=== PATIENT | female | born 1955 | race Caucasian/White ===

== ENCOUNTER 2016-10-26 05:34 | Day surgery (SDC) | payer MEDICARE, OTHER ==
[2016-10-25 15:21] VITALS: Ht 157.5 cm; Wt 70.0 kg
[~2016-10-26] VITALS: Ht 157.5 cm; Wt 70.0 kg
[2016-10-26] VITALS (16 sets, daily range): BP systolic 119–173; BP diastolic 46–68; PULSE 68–78; RESP 18–28
[~2016-10-26 05:34] MED LIST: APIX5TAB PO; ASPI-664 PO; ATOR10TA65 PO; FER325 PO; FURO-109 PO; GABA300C16 PO; LEVE250T66 PO; OMEP20CA16 PO; SENN-36 PO; SERT50TA PO; SEVE800T7 PO
[2016-10-26] MEDS ORDERED: ROCURONIUM 50 MG INJ ONE (07:00)
--- NOTE | 2016-10-26 07:10 | HPN ---
Date/Time of Note Date/Time of Note DATE: 10/26/16 TIME: 07:10 Interval H&P Admission Note Pt. seen H&P reviewed: No system changes MELODY JENNINGS DPM Oct 26, 2016 07:10
[2016-10-26 07:23] LABS: POTASSIUM 5.4 mmol/L (3.5-5.1)
[2016-10-26 07:25] LABS: CREATININE 4.07 mg/dl (0.44-1.00)
[2016-10-26] MEDS ORDERED: PROPOFOL 100 ML ONE (07:25)
[2016-10-26] MEDS ORDERED: CEFAZOLIN 1 GM INJ ONE (07:25)
[2016-10-26] MEDS ORDERED: ROPIVACAINE 0.5 % 30 ML VIAL ONE (07:25)
[2016-10-26] MEDS ORDERED: MIDAZOLAM 1 MG/ML 2 ML INJ ONE (07:25)
[2016-10-26] MEDS ORDERED: FENTAnyl 50 MCG/ML VIAL ONE (07:25)
[2016-10-26] MEDS ORDERED: PHENYLephrine (100 MCG/ML) 5ML SYG ONE (07:56)
[2016-10-26] MEDS ORDERED: POLYMYXIN/BACITRACIN 1L IRRIG IRR ONE (08:02)
[2016-10-26] MEDS ORDERED: EPHEDrine SULFATE 50 MG/5 ML SYG IV PRN (08:30)
[2016-10-26] MEDS ORDERED: HYDROmorphONE (0.2 MG/ML) 10ML SYG IV PRN ×3 (08:30)
[2016-10-26] MEDS ORDERED: ONDANSETRON 4 MG INJ IV PRN (08:30)
[2016-10-26] MEDS ORDERED: FENTAnyl 50 MCG/ML VIAL IV PRN ×3 (08:30)
[2016-10-26] MEDS ORDERED: LABETALOL HCL 20MG INJ IV PRN (08:30)
[2016-10-26] MEDS ORDERED: DIPHENHYDRAMINE 50 MG INJ IV PRN (08:30)
[2016-10-26] MEDS ORDERED: morphine (1 MG/ML) 10ML SYRINGE IV PRN ×3 (08:30)
[2016-10-26] MEDS ORDERED: hydrALAzine 20 MG INJ IV PRN (08:30)
[2016-10-26] MEDS ORDERED: ONDANSETRON 4 MG INJ ONE (08:49)
[2016-10-26] MEDS ORDERED: DEXAMETHASONE 4 MG/ML 1 ML INJ ONE (08:49)
[2016-10-26] MEDS ORDERED: METOCLOPRAMIDE 10 MG INJ ONE (08:49)
[2016-10-26] MEDS ORDERED: GLYCOPYRROLATE 0.4 MG INJ ONE (08:49)
[2016-10-26] MEDS ORDERED: NEOSTIGMINE 3 MG/3 ML SYRINGE ONE (08:49)
--- NOTE | 2016-10-26 09:06 | OPR ---
Date/Time of Note Date/Time of Note DATE: 10/26/16 TIME: 09:04 Operative Report Procedure Date: Oct 26, 2016 Preoperative Diagnosis Right foot large plantar bony exostosis Right foot Charcot changes Diabetes mellitus Peripheral neuropathy Peripheral vascular disease On chronic HD Postoperative Diagnosis Right foot large plantar bony exostosis Right foot Charcot changes Diabetes mellitus Peripheral neuropathy Peripheral vascular disease On chronic HD Operation Performed Right foot exostectomy Application of posterior splint Intra operative use and interpretation of fluoroscopy Surgeon: MELODY JENNINGS DPM Anesthesia: general Estimated Blood Loss: 0 - 10 ml's Specimens Bone from plantar right foot Skin lesion from plantar right foot Complications: None Pt Condition Post Procedure: stable Disposition: PACU Indications This is a pleasant 60 year old female with PMHx sig for DM with peripheral neuropahty, Charcot right foot with bony prominence in the plantar central foot who has been developing progressively worsening pain in her right foot with weight bearing and walking. Clinical and radiographic findings point to a large bony prominence on the plantar central right foot. Recommendation was made for surgical exostectomy and remodeling of right foot with possible reconstruction. Risks and complications of this type of surgery was discussed with patient in great detail. Risks and complications discussed include, but are not limited to, post operative infection, post operative pain, chronic pain and disability, gait disturbance, non union, delayed union, mal union of bone, failure of surgery to correct the problem, need for additional surgical procedures, DVT, limb loss and loss of life. Patient understands the above discussion and agrees to the procedure. An informed consent was obtained, signed and placed in the chart. No guarantee or warrantee was given or implied as to the outcome of the procedure either in verbal or written form. Operative Findings Large bony prominence plantar right foot. Stable midfoot Charcot. Procedure Description The patient was greeted in the preoperative area. Proposed surgery was discussed with patient. All questions were answered. An informed consent was signed and placed in the chart. The patient was then taken to the operating room and was placed on the operating table in the supine position. Next, a right thigh tourniquet was applied. The right lower extremity was then scrubbed , prepped and draped in the usual aseptic manner. Attention was then directed to the right foot plantarly. The right LE was exsanguinated using an Esmarch. The tight tourniquet was inflated to 300 mmHg pressure. C-arm was used to located the bony prominence which was also easily palpable. A 3 cm plantar incision was made using a #10 blade. The incision was deepened to the subq layer with care being taken to identify and protect vital neurovascular structures. Next, the incision was deepened to the periosteal layer. A cole elevator was used to dissect the bony exostosis. Next, a curved 1/2 inch osteotome was used to remove the exostosis. After successful extraction, I explored the right foot and no further procedures were deemed necessary. The wound was then flushed with copious amounts of sterile normal saline. The subcutaneous layer was closed using 3-0 Vicryl and the skin was closed using 0- Prolene in simple suture technique. Postop injection was given, 10 cc 05% Marcaine plain. The tourniquet was deflated and prompt hyperemic response was noted to the digits of the right foot. Sterile dressing was applied. A posterior splint was applied. The patient tolerated the procedure and anesthesia well. She was transferred to the recovery room with vital signs stable. Patient is to be discharged home after post operative monitoring. Patient is to remain non weightbearing on her right foot. Follow up at the [facility] clinic in one week. MELODY JENNINGS DPM Oct 26, 2016 09:06
[2016-10-26] MEDS ORDERED: HYDROCODONE/APAP (10/325) TAB PO PRN (09:30)
[2016-10-26] MEDS ORDERED: POLYMYXIN/BACITRACIN 1L IRRIG ONE (10:24)
--- NOTE | 2016-10-26 12:00 | RADRPT ---
PROCEDURE: XR Right Foot CLINICAL INDICATION: Postop TECHNIQUE: AP, oblique, and lateral radiographs were submitted. COMPARISON: 07/18/2016 FINDINGS: The foot is immobilized in a posterior and plantar splint which obscures the underlying anatomy. Osseous structures: There again is sclerosis and fragmentation involving the midfoot with absence of the anterior talus, cuboid, tarsal navicular and most of the cuneiforms with fragmentation of the b ases of the first through fourth metatarsals compatible with severe neurotrophic joint changes. No new fracture or osseous destruction is evident. Joint spaces: There is narrowing of the metatarsal tarsal joint spaces. There is again a rocker ladarius om configuration to the foot. Soft tissues: appear unremarkable. IMPRESSION: 1. Since the previous study, that there is been immobilized in a posterior and plantar are splint w hich obscures the underlying anatomy. 2. Severe neurotrophic joint changes are again noted with absence of the mid tarsal bones and scler osis and fragmentation at the metatarsal tarsal junctions. 3. There is again a rocker bottom configuration to the foot. Physician Bruno Date Time Electronically viewed and signed by Physician Bruno on 10/26/2016 12:00 RH/
--- NOTE | 2016-10-26 12:17 | RADRPT ---
PROCEDURE: Fluoroscopic spot views of the right foot for surgical guidance CLINICAL INDICATION: Right foot pain TECHNIQUE: 5 fluoroscopic spot views of the right foot. Images were submitted to the radiology dep artment for interpretation. COMPARISON: None FINDINGS: A radiopaque surgical marker is seen on the plantar aspect of the right foot as well as projecting o alden the first digit. The images were reviewed by the attending physician at the time of the procedu re. Fluoroscopy time was 16 seconds. IMPRESSION: Intraoperative images were obtained of the right foot for surgical guidance. Please refer to the jonny edmondson's operative notes for further details. RPTAT: HPNM Physician Onelia Date Time Electronically viewed and signed by Physician Onelia on 10/26/2016 12:17 /
== END 2016-10-26 11:40 | disposition home or self-care (01) ==
LOC: SDS 05:34
PROVIDERS: ATTEND Podiatrist Foot & Ankle Surgery
DX: R23.4 Changes in skin texture (principal); M89.8X7 Other specified disorders of bone, ankle and foot; I73.9 Peripheral vascular disease, unspecified; E11.9 Type 2 diabetes mellitus without complications; I12.0 Hypertensive chronic kidney disease with stage 5 chronic kidney disease or end stage renal disease; N18.6 End stage renal disease; Z99.2 Dependence on renal dialysis
CPT/HCPCS: 28119; 73630; 80048; 82962; 88304; 88305; 88311; J0690; J1100; J1170; J2250; J2370; J2405; J2710; J2765; J3010; J2795

== ENCOUNTER 2017-04-29 13:13 | Emergency (ER) | payer MEDICARE, OTHER ==
[~2017-04-29] VITALS: Ht 160 cm; Wt 75.0 kg
[2017-04-29 13:17] VITALS: Ht 160 cm; Wt 75.0 kg
[2017-04-29] MEDS ORDERED: INSULIN REGULAR, HUMAN 100 UNIT/1 ML 3ML VIAL IV STA (13:36)
[2017-04-29] MEDS ORDERED: ALBUTEROL 0.5% (NEB) 2.5 MG/0.5 ML AMP INH STA (13:36)
[2017-04-29] MEDS ORDERED: DEXTROSE 50% 50 ML SYRINGE IV PRN (14:00)
[2017-04-29 14:24] LABS: BASOPHILS % 0.3 % (0.0-2.0); EOSINOPHILS # 0.2 10^3/ul (0.0-0.5); EOSINOPHILS % 2.8 % (0.0-7.0); HEMATOCRIT 33.6 % (37.0-47.0); HEMOGLOBIN 11.3 g/dl (12.0-16.0); LYMPHOCYTES # 1.5 10^3/ul (0.8-2.9); LYMPHOCYTES % 23.8 % (15.0-51.0); MEAN CORPUSCULAR HEMOGLOBIN 34.1 pg (29.0-33.0); MEAN CORPUSCULAR HGB CONC 33.6 g/dl (32.0-37.0); MEAN CORPUSCULAR VOLUME 101.5 fl (82.0-101.0); MEAN PLATELET VOLUME 9.3 fl (7.4-10.4); MONOCYTE # 0.5 10^3/ul (0.3-0.9); MONOCYTES % 7.7 % (0.0-11.0); NEUTROPHILS % 65.1 % (39.0-77.0); PLATELET COUNT 317 10^3/UL (140-415); RED BLOOD COUNT 3.31 10^6/ul (4.20-5.40); RED CELL DISTRIBUTION WIDTH 14.2 % (11.5-14.5); WHITE BLOOD COUNT 6.1 10^3/ul (4.8-10.8)
[2017-04-29 14:44] LABS: CALCIUM 8.7 mg/dl (8.4-10.2); CREATININE 5.76 mg/dl (0.44-1.00)
[2017-04-29 14:46] LABS: POTASSIUM 5.7 mmol/L (3.5-5.1)
--- NOTE | 2017-04-29 15:13 | ERA ---
ER Documentation Chief Complaint Date/Time DATE: 04/29/17 TIME: 14:55 Chief Complaint SENT BY PMD FOR HIGH POTASSIUM HPI This is a 61-year-old female with a past medical history of diabetes, end-stage renal disease on dialysis Friday, hypertension, hyperlipidemia , right-sided Charcot foot, previous stroke with no residual deficits who is presenting after being told that her potassium was high. The patient was at dialysis yesterday. She received a full session. Prior to dialysis, she had her blood work drawn. She was called this morning and told to come to the emergency department, because her potassium was greater than 6.5. The patient' s family member thinks that it was 6.6 or 6.7, but they do not have the blood work with them. The patient does endorse not feeling well for several months. She reports intermittent lightheadedness and body aches. She does not endorse fever, but she does have intermittent chills. She does not feel sick presently, but she does feel a little lightheaded. She does not have chest pain or abdominal pain. She does endorse occasional shortness of breath, but not presently. She does still urinate, but it is minimal. She does have a history of long- standing constipation per her report. ROS All systems reviewed and are negative except as per history of present illness. Medications Home Meds Active Scripts Apixaban* (Eliquis*) 5 Mg Tablet, 5 MG PO BID for 30 Days, 1 Refill Prov:GIANNA PAYNEAmaris . 11/12/14 Atorvastatin Calcium (Atorvastatin Calcium) 10 Mg Tab, 10 MG PO HS for 30 Days, TAB 1 Refill Prov:ELMERJOEYSJ . 11/12/14 Levetiracetam* (Keppra*) 250 Mg Tab, 250 MG PO BID for 30 Days, TAB 1 Refill Prov:GIANNA PAYNEAmaris . 11/12/14 Reported Medications Sevelamer Carbonate* (Renvela*) 800 Mg Tablet, 2400 MG PO WITH MEALS, TAB 11/10/14 Sertraline Hcl* (Zoloft*) 50 Mg Tablet, 50 MG PO DAILY, TAB 11/10/14 Omeprazole* (Omeprazole*) 20 Mg Capsule.dr, 20 MG PO BID, CAP 11/10/14 Furosemide* (Lasix*) 40 Mg Tablet, 40 MG PO DAILY, TAB 11/10/14 Aspirin* (Aspirin* EC) 81 Mg Tablet.dr, 81 MG PO DAILY, TAB 11/10/14 Ferrous Sulfate* (Ferrous Sulfate*) 325 Mg Tabec, 325 MG PO DAILY, TAB 11/10/14 Sennosides* (Senokot*) 8.6 Mg Tablet, 2 TAB PO BID, TAB 02/26/14 Gabapentin* (Gabapentin*) 300 Mg Capsule, 300 MG PO DAILY, CAP 02/26/14 Allergies Allergies: Coded Allergies: No Known Allergy (Verified , 04/29/17) PMhx/Soc History of Surgery: Yes (; kidney stones removal) Anesthesia Reaction: Yes Hx Neurological Disorder: Yes (stroke 1996) Hx Respiratory Disorders: Yes (sinusitis) Hx Cardiac Disorders: Yes (HTN/HYPERLIPIDEMIA) Hx Psychiatric Problems: No Hx Miscellaneous Medical Probl: No Hx Alcohol Use: No Hx Substance Use: No Hx Tobacco Use: No Smoking Status: Unknown if ever smoked FmHx Family History: diabetes Physical Exam Vitals Vital Signs Date Time Temp Pulse Resp B/P Pulse Ox O2 Delivery O2 Flow Rate FiO2 04/29/17 13:17 97.8 74 18 115/54 98 Physical Exam Const: NAD Head: Atraumatic Eyes: Normal Conjunctiva ENT: Normal External Ears, Nose and Mouth. Neck: Full range of motion..~ No meningismus. Resp: Clear to auscultation bilaterally Cardio: Regular rate and rhythm, no murmurs Abd: Obese, Soft, non tender, non distended. Normal bowel sounds Skin: No petechiae or rashes Back: No midline or flank tenderness Ext: No cyanosis, or edema, right charcot foot with brace, no foot ulcers Neur: Awake and alert Psych: Normal Mood and Affect Result Diagram: 04/29/17 1415 04/29/17 1415 Results 24 hrs Laboratory Tests Test 04/29/17 14:15 White Blood Count 6.110^3/ul Red Blood Count 3.3110^6/ul Hemoglobin 11.3g/dl Hematocrit 33.6% Mean Corpuscular Volume 101.5fl Mean Corpuscular Hemoglobin 34.1pg Mean Corpuscular Hemoglobin Concent 33.6g/dl Red Cell Distribution Width 14.2% Platelet Count 88865^3/UL Mean Platelet Volume 9.3fl Neutrophils % 65.1% Lymphocytes % 23.8% Monocytes % 7.7% Eosinophils % 2.8% Basophils % 0.3% Nucleated Red Blood Cells % 0.0/100WBC Neutrophils # (Manual) 4.010^3/ul Lymphocytes # 1.510^3/ul Monocytes # 0.510^3/ul Eosinophils # 0.210^3/ul Basophils # 0.010^3/ul Nucleated Red Blood Cells # 0.010^3/ul Sodium Level 137mmol/L Potassium Level 5.7mmol/L Chloride Level 93mmol/L Carbon Dioxide Level 28mmol/L Anion Gap 22 Blood Urea Nitrogen 58mg/dl Creatinine 5.76mg/dl Glucose Level 134mg/dl Calcium Level 8.7mg/dl Current Medications Medications (Trade) Dose Ordered Sig/Nick Route PRN Reason Start Time Stop Time Status Last Admin Dose Admin Albuterol (Proventil 0.5% (Neb)) 15 mg ONCE STAT INH 04/29/17 13:36 04/29/17 13:42 DC Insulin Human Regular (Humulin R) 10 unit ONCE STAT IV 04/29/17 13:36 04/29/17 13:42 DC Dextrose (D50w Syringe) ONCE PRN IV POC BLOOD GLUCOSE <250 MG/DL 04/29/17 14:00 04/29/17 14:00 DC Procedures/MDM The patient's presenting with concerns of an elevated potassium. Blood work was obtained and reviewed. The patient shows no leukocytosis. The patient does have a mild anemia that does not need to be emergently treated. The patient's BMP reveals an elevated creatinine. The patient does have end- stage renal disease and is already undergoing dialysis. She does have an elevated potassium, but it is at 5.7, which does not necessarily need to be emergently treated. EKG read by me: Rate/Rhythm: Regular rate and rhythm at a rate of 71 Intervals: Normal [place]: Normal NO JUDITH, NO STD, NO PEAKED T waves Impression: No evidence of ischemia or arrhythmia, No evidence of cardiac irritation from hyperkalemia. The patient's freight team associate was called to discuss the case. He had been under the impression that the blood work was obtained after dialysis. In speaking to the patient and the patient's caregiver, they report that the blood work was actually obtained prior to dialysis. Given that she has a normal EKG and a decreased potassium to less than 6, he felt that it was safe for the patient to go home and be dialyzed tomorrow. I feel that the patient is stable for discharge as well. The patient has normal vital signs, and many of her other symptoms have been chronic and ongoing for months to years. She needs to follow-up with her primary care physician in 1-2 days, but it does not require emergent treatment today. She will be given precautions with which to return to the emergency department. Departure Diagnosis: Primary Impression: Encounter for laboratory test Additional Impression: Hyperkalemia Condition: Stable NILDA CORADO MD Apr 29, 2017 15:11
[2017-04-29] MEDS ORDERED: AMLO-147 PO (15:26)
[2017-04-29] MEDS ORDERED: BACL10TA PO (15:27)
[2017-04-29] MEDS ORDERED: GLIP5TAB13 PO (15:27)
[2017-04-29 15:38] VITALS: BP 148/69; PULSE 70; RESP 16; TEMP 97.8
== END 2017-04-29 15:39 | disposition home or self-care (01) ==
LOC: E/R 13:13
DX: E87.5 Hyperkalemia (principal); E11.22 Type 2 diabetes mellitus with diabetic chronic kidney disease; N18.6 End stage renal disease; Z79.01 Long term (current) use of anticoagulants; Z79.82 Long term (current) use of aspirin; Z99.2 Dependence on renal dialysis
CPT/HCPCS: 80048; 85025; 93005